=== PATIENT | male | born 1960 | race Caucasian/White ===

== ENCOUNTER 2016-12-11 09:09 | Observation (INO) | payer OTHER ==
[~2016-12-11] VITALS: Ht 172.7 cm; Wt 79.1 kg
[~2016-12-11 09:09] MED LIST: CIAL20TA PO; OMEP20TA PO
[2016-12-11] MEDS ORDERED: SODIUM CHLOR 0.9% 1000 ML INJ 1,000 ML IV ONE (09:17)
[2016-12-11 09:19] LABS: MEAN CORPUSCULAR HGB CONC 36.2 % (32.0-36.0)
[2016-12-11 09:20] VITALS: BP 129/86; PULSE 82; RESP 16; TEMP 98; O2SAT 97
[2016-12-11 09:24] LABS: I-STAT POTASSIUM 3.9 MMOL/L (3.5-4.9)
[2016-12-11] MEDS ORDERED: PRIL20CA9 PO (09:26)
[2016-12-11 09:27] LABS: AUTOMATED NEUTROPHIL # 5.5 TH/MM3 (1.8-7.7); BASOPHIL # 0.1 TH/MM3 (0-0.2); BASOPHIL % 1.1 % (0.0-2.0); EOSINOPHIL # 0.3 TH/MM3 (0-0.4); EOSINOPHIL % 2.9 % (0.0-4.0); HEMATOCRIT 38.8 % (39.0-51.0); LYMPH % 20.6 % (9.0-44.0); LYMPHOCYTE # 1.8 TH/MM3 (1.0-4.8); MEAN CELL VOLUME 88.9 FL (80.0-100.0); MEAN CORPUSCULAR HEMOGLOBIN 32.2 PG (27.0-34.0); MONO % 13.7 % (0.0-8.0); NEUT % 61.7 % (16.0-70.0); PLATELET COUNT 270 TH/MM3 (150-450); RED BLOOD COUNT 4.36 MIL/MM3 (4.50-5.90); RED CELL DISTRIBUTION WIDTH 12.6 % (11.6-17.2); WHITE BLOOD COUNT 8.9 TH/MM3 (4.0-11.0)
[2016-12-11 09:32] LABS: HEMO FLAGS AUTO DIFF
--- NOTE | 2016-12-11 09:33 | RADRPT ---
EXAM DATE/TIME: 12/11/2016 09:20 [facility] COMPARISON: No previous studies available for comparison. INDICATIONS : Stroke alert. Left sided flaccid arm and leg. RADIATION DOSE: 42.62 CTDIvol (mGy) This report was called by Dr. Meade to at 9: 30 AM MEDICAL HISTORY : None SURGICAL HISTORY : None. ENCOUNTER: Initial ACUITY: 1 day PAIN SCALE: 0/10 LOCATION: cranial TECHNIQUE: Multiple contiguous axial images were obtained of the head. Using automated exposure control and adj ustment of the mA and/or kV according to patient size, radiation dose was kept as low as reasonably a chievable to obtain optimal diagnostic quality images. FINDINGS: CEREBRUM: The ventricles are normal for age. No evidence of midline shift, mass lesion, hemorrhage or acute in farction. No extra-axial fluid collections are seen. POSTERIOR FOSSA: The cerebellum and brainstem are intact. The 4th ventricle is midline. The cerebellopontine angle i s unremarkable. EXTRACRANIAL: The visualized portion of the orbits is intact. SKULL: The calvaria is intact. No evidence of skull fracture. CONCLUSION: Normal examination for a patient of this age. Chava Meade MD on December 11, 2016 at 9:30 Board Certified Radiologist. This report was verified electronically.
[2016-12-11 09:34] LABS: APTT (PATIENT) 21.5 SEC (24.3-30.1); INTERNATIONAL NORMALIZED RATIO 0.9 RATIO; PROTHROMBIN TIME - PATIENT 9.8 SEC (9.8-11.6)
--- NOTE | 2016-12-11 09:41 | PD ---
HPI Chief Complaint: Stroke Alert Time Seen by Provider: 09:17 Travel History International Travel<30 days: No Contact w/Intl Traveler<30days: No Traveled to known affect area: No History of Present Illness HPI This patient is brought in as a stroke alert was called by paramedics in the field. This patient was seated at his desk at 8:45 AM when he reportedly developed weakness of left arm and leg and numbness of left arm and leg. No speech problems or mental confusion. He denies headache or head injury. Takes no blood thinners. He actually reports no health problems or medications. One auto technician reported that he was flaccid on the left side but the other one says that he saw him moving the left arm and when he noticed her watching he abruptly at fall to the ground and started using the right arm instead. She said he was hyperventilating and anxious on scene. Regardless, when I evaluate him at about 10 minutes after 9 his symptoms have essentially resolved. His sensation is reportedly back to normal and he is moving his arm and leg. Symptoms were of moderate severity but resolved on their own. No alleviating factors. Duration 25 minutes PFSH Past Medical History Medical History: Denies Significant Hx Past Surgical History Surgical History: No Previous Surgery Social History Alcohol Use: Yes ("COUPLE BEERS DAILY") Tobacco Use: No Substance Use: No (DENIES) Allergies-Medications (Allergen,Severity, Reaction): Coded Allergies: Codeine (Unverified Allergy, Intermediate, vomitting , 12/11/16) Liquid Codeine Reported Meds & Prescriptions Reported Meds & Active Scripts Active Reported Prilosec (Omeprazole) 20 Mg Cap 20 Mg PO DAILY Review of Systems General / Constitutional: No: Fever Eyes: No: Visual changes HENT: No: Headaches Cardiovascular: No: Chest Pain or Discomfort Respiratory: No: Shortness of Breath Gastrointestinal: No: Abdominal Pain Genitourinary: No: Dysuria Musculoskeletal: No: Pain Skin: No Rash Neurologic: Positive: Weakness, Sensory Disturbance Psychiatric: Positive: Anxiety, No: Depression Endocrine: No: Polydipsia Hematologic/Lymphatic: No: Easy Bruising Physical Exam Narrative GENERAL: Well-nourished, well-developed patient in no apparent distress. SKIN: Warm and dry. HEAD: Atraumatic. Normocephalic. EYES: Pupils equal and round. No scleral icterus. No injection or drainage. ENT: No nasal bleeding or discharge. Mucous membranes pink and moist. NECK: Trachea midline. No JVD. CARDIOVASCULAR: Regular rate and rhythm. No murmur appreciated. RESPIRATORY: No accessory muscle use. Clear to auscultation. Breath sounds equal bilaterally. GASTROINTESTINAL: Abdomen soft, non-tender, nondistended. Hepatic and splenic margins not palpable. MUSCULOSKELETAL: No obvious deformities. No clubbing. No cyanosis. No edema. NEUROLOGICAL: Awake and alert. No obvious cranial nerve deficits. Motor grossly within normal limits. Normal speech. PSYCHIATRIC: Anxious mood and affect; insight and judgment normal. Data Data Last Documented VS Vital Signs Date Time Temp Pulse Resp B/P Pulse Ox O2 Delivery O2 Flow Rate FiO2 12/11/16 09:29 97 Room Air 12/11/16 09:27 75 18 12/11/16 09:20 98.0 129/86 Orders Diet Npo (12/11/16 Breakfast) Activity Bed Rest (12/11/16 ) Electrocardiogram (12/11/16 ) I-Stat Creatinine (12/11/16 09:17) I-Stat Profile (12/11/16 09:17) Prothrombin Time / Inr (Pt) (12/11/16 09:17) Act Partial Throm Time (Ptt) (12/11/16 09:17) Complete Blood Count With Diff (12/11/16 09:17) Fibrinogen (12/11/16 09:17) Drug Screen, Random Urine (12/11/16 09:17) Type And Screen (12/11/16 09:17) Ct Brain W/O Iv Contrast(Rout) (12/11/16 ) Consult Neurology (12/11/16 ) Blood Glucose (12/11/16 09:17) Ecg Monitoring (12/11/16 09:17) Neuro Checks Q2HX12,Q4H (12/11/16 09:17) Nursing Bedside Swallow Assess .ONCE (12/11/16 09:17) Iv Access Insert/Monitor (12/11/16 09:17) NPO (12/11/16 09:17) Oximetry (12/11/16 09:17) Oxygen Administration (12/11/16 09:17) Sodium Chlor 0.9% 1000 Ml Inj (Ns 1000 M (12/11/16 09:17) Resp Oxygen Magdi C Titrat 1-4 L (12/11/16 09:17) (Hub Use Only)Inp Phy Cons/Ref (12/11/16 ) Labs Laboratory Tests Test 12/11/16 09:10 White Blood Count 8.9 TH/MM3 Red Blood Count 4.36 MIL/MM3 Hemoglobin 14.0 GM/DL Bedside Hemoglobin 13.3 G/DL Hematocrit 38.8 % Bedside Hematocrit 39.0 % Mean Corpuscular Volume 88.9 FL Mean Corpuscular Hemoglobin 32.2 PG Mean Corpuscular Hemoglobin 36.2 % Concent Red Cell Distribution Width 12.6 % Platelet Count 270 TH/MM3 Mean Platelet Volume 9.3 FL Neutrophils (%) (Auto) 61.7 % Lymphocytes (%) (Auto) 20.6 % Monocytes (%) (Auto) 13.7 % Eosinophils (%) (Auto) 2.9 % Basophils (%) (Auto) 1.1 % Neutrophils # (Auto) 5.5 TH/MM3 Lymphocytes # (Auto) 1.8 TH/MM3 Monocytes # (Auto) 1.2 TH/MM3 Eosinophils # (Auto) 0.3 TH/MM3 Basophils # (Auto) 0.1 TH/MM3 CBC Comment AUTO DIFF Prothrombin Time 9.8 SEC Prothromb Time International 0.9 RATIO Ratio Activated Partial 21.5 SEC Thromboplast Time Fibrinogen 253 mg/dL Bedside Sodium 139 MMOL/L Bedside Potassium 3.9 MMOL/L Bedside Chloride 103 MMOL/L Bedside Blood Urea Nitrogen 16 MG/DL Bedside Creatinine 1.0 MG/DL Bedside Glucose 116 MG/DL Blood Type O POSITIVE Blood Bank Comment MDM Medical Decision Making Medical Screen Exam Complete: Yes Emergency Medical Condition: Yes Medical Record Reviewed: Yes Differential Diagnosis CVA, TIA, panic attack Narrative Course I have reviewed the patient's electronic medical record. I initiated stroke alert protocol I reviewed the case in detail with neurologist protection officer Dr. Rodriguez Brain CT I discussed with radiologist is normal He does not meet TPA criteria based on rapidly resolving deficits. Within 25 minutes he was basically resolved. There is question as to whether there is some psychiatric issues contributing. He seemed quite anxious and was wearing women's shoes and underwear. Regardless patient will require admission for neurologic evaluation. Dr. Rodriguez recommends this and will be a technical marketing consultant. At his recommendation on giving him an aspirin and admitting him to the hospitalist who I'm calling now Diagnosis Primary Impression: Acute focal neurological deficit, onset within 3 hours Admitting Information Admitting Physician Requests: Admit Bernard Jefferson MD Dec 11, 2016 09:41
[2016-12-11] MEDS ORDERED: ASPIRIN 325 MG TAB PO ONE (09:45)
[2016-12-11 09:57] LABS: SCAN/DIFF AUTO DIFF CONFIRMED
--- NOTE | 2016-12-11 10:44 | HHI.HP ---
[facility] Service [facility] Primary Care Physician Unknown Admission Diagnosis acute neurologic deficit/ stroke alert Diagnoses: (1) TIA (transient ischemic attack) (2) Acute focal neurological deficit, onset within 3 hours (3) GERD (gastroesophageal reflux disease) Chief Complaint: weakness and numbness of left arm/leg Travel History International Travel<30 Days: No Contact w/Intl Traveler <30 Da: No Traveled to Known Affected Are: No History of Present Illness Patient is a 56-year-old male who states that he was sitting at his desk this morning developed lightheadedness, dizziness, and left sided numbness and weakness. He called 911 and states that he had to crawl down the stairs to unlock the door to let them in. He denies headache, chest pain, dyspnea. Left upper and lower extremity numbness and weakness have resolved. They lasted less than 30 minutes total. Currently asymptomatic and asking if he can go home. Review of Systems Constitutional: DENIES: Fever, Chills, Night Sweats Eyes: DENIES: Blurred vision, Vision loss Ears, nose, mouth, throat: DENIES: Hearing loss Respiratory: DENIES: Cough, Wheezing, Sputum production, Shortness of breath Cardiovascular: DENIES: Chest pain, Palpitations, Dyspnea on Exertion, Lower Extremity Edema Gastrointestinal: DENIES: Abdominal pain, Constipation, Diarrhea, Nausea, Vomiting Genitourinary: DENIES: Urinary frequency, Urinary incontinence, Urgency, Hematuria, Dysuria, Nocturia Musculoskeletal: DENIES: Joint pain, Muscle aches Integumentary: DENIES: Pruritus, Rash Hematologic/lymphatic: DENIES: Bruising Neurologic: COMPLAINS OF: Localized weakness, DENIES: Headache Past Family Social History Past Medical History GERD Past Surgical History None Reported Medications Prilosec 20 mg daily Allergies: Coded Allergies: Codeine (Unverified Allergy, Intermediate, vomitting , 12/11/16) Liquid Codeine Family History Father of MD. Social History Drinks 3-4 beers daily. Reports remote history of illicit drug use. No IV drug abuse. Denies tobacco use. Physical Exam Vital Signs Vital Signs Date Time Temp Pulse Resp B/P Pulse Ox O2 Delivery O2 Flow Rate FiO2 12/11/16 09:29 97 Room Air 12/11/16 09:27 75 18 97 Room Air 12/11/16 09:20 98.0 82 16 129/86 97 Physical Exam GENERAL: Well-nourished, well-developed malein no acute distress. HEENT: Normocephalic, atraumatic. Pupils equal, round and reactive. Extraocular movements intact. No scleral icterus. No injection or drainage. Oropharynx is clear. Mucous membranes are moist. CARDIOVASCULAR: Regular rate and rhythm without murmurs, gallops, or rubs. RESPIRATORY: Clear to auscultation. No wheezes, rales, or rhonchi. Breathing is non-labored. GASTROINTESTINAL: Abdomen soft, non-tender, nondistended. EXTREMITIES: No lower extremity edema. No calf tenderness. PSYCH: Alert and oriented x 3. NEURO: Cranial nerves II through XII are grossly intact. Geology Technician strength 5/5 bilaterally. Lower extremity strength 5/5 bilaterally. Laboratory Laboratory Tests Test 12/11/16 09:10 White Blood Count 8.9 Red Blood Count 4.36 Hemoglobin 14.0 Bedside Hemoglobin 13.3 Hematocrit 38.8 Bedside Hematocrit 39.0 Mean Corpuscular Volume 88.9 Mean Corpuscular Hemoglobin 32.2 Mean Corpuscular Hemoglobin 36.2 Concent Red Cell Distribution Width 12.6 Platelet Count 270 Mean Platelet Volume 9.3 Neutrophils (%) (Auto) 61.7 Lymphocytes (%) (Auto) 20.6 Monocytes (%) (Auto) 13.7 Eosinophils (%) (Auto) 2.9 Basophils (%) (Auto) 1.1 Neutrophils # (Auto) 5.5 Lymphocytes # (Auto) 1.8 Monocytes # (Auto) 1.2 Eosinophils # (Auto) 0.3 Basophils # (Auto) 0.1 CBC Comment AUTO DIFF Differential Comment AUTO DIFF CONFIRMED Prothrombin Time 9.8 Prothromb Time International 0.9 Ratio Activated Partial 21.5 Thromboplast Time Fibrinogen 253 Bedside Sodium 139 Bedside Potassium 3.9 Bedside Chloride 103 Bedside Blood Urea Nitrogen 16 Bedside Creatinine 1.0 Bedside Glucose 116 Blood Type O POSITIVE Antibody Screen NEGATIVE Blood Bank Comment Result Diagram: 12/11/16 0910 Imaging Last Impressions Head CT 12/11/16 0000 Signed Impressions: Service Date/Time: Sunday, December 11, 2016 09:20 - CONCLUSION: Normal examination for a patient of this age. Chava Meade MD Assessment and Plan Assessment and Plan 1. Acute neurologic deficit: Likely TIA. Symptoms have resolved. ER physician spoke with neurology who requests further workup for TIA/CVA. Check MRI brain, carotid artery ultrasound, echocardiogram. Continue aspirin. 2. GERD: Continue PPI. 3. DVT prophylaxis: JOSE A Cabrales. Bernard Potter MD Dec 11, 2016 10:44
[2016-12-11] MEDS ORDERED: SODIUM CHLORIDE 0.9% FLUSH 5 ML FLUSH IVF PRN (11:15)
[2016-12-11] MEDS ORDERED: GLUCAGON 1 MG/ML VIAL IM/SQ PRN (11:15)
[2016-12-11] MEDS ORDERED: DEXTROSE 50% IN WATER 50 ML VIAL(D50) IV PUSH PRN (11:15)
[2016-12-11 11:58] LABS: HEMOGLOBIN A1a 0.7 %; HEMOGLOBIN A1b 1.5 %; HEMOGLOBIN Ao 86.6 %; HEMOGLOBIN LA1C 2.2 %; HEMOGLOBIN P3 3.7 %
[2016-12-11 13:10] VITALS: BP 143/79
--- NOTE | 2016-12-11 13:16 | RADRPT ---
EXAM DATE/TIME: 12/11/2016 12:43 [facility] COMPARISON: No previous studies available for comparison. INDICATIONS : Left sided weakness. MEDICAL HISTORY : None. SURGICAL HISTORY : Inguinal hernia repair. ENCOUNTER: Initial ACUITY: 1 day PAIN SCORE: 0/10 LOCATION: cranial Please note a normal MRA of the brain does not entirely exclude the possibility of a small aneurysm, nor the possibility of distal intracranial vessel disease. TECHNIQUE: 3D time of flight MRA was performed. Source images, multiplanar STS MIP, and 3D volume MIP reconstru ctions were reviewed. FINDINGS: There is excellent visualization of the major intracranial arteries out to the second-order branch ve ssels. There is no evidence for aneurysm, vessel truncation or stenosis, and no evidence for vascula r malformation. There is a patent posterior communicating artery. CONCLUSION: Normal examination for a patient of this age. Chava Meade MD on December 11, 2016 at 13:14 Board Certified Radiologist. This report was verified electronically.
[2016-12-11 13:22] VITALS: BP 136/79; PULSE 65; RESP 20; TEMP 99.4; O2SAT 96
--- NOTE | 2016-12-11 13:48 | RADRPT ---
EXAM DATE/TIME: 12/11/2016 12:43 [facility] COMPARISON: CT BRAIN W/O CONTRAST, December 11, 2016, 9:20. INDICATIONS : Left sided weakness. MEDICAL HISTORY : None. SURGICAL HISTORY : Inguinal hernia repair. ENCOUNTER: Initial ACUITY: 1 day PAIN SCORE: 0/10 LOCATION: cranial TECHNIQUE: Multiplanar, multisequence MRI of the brain was performed without contrast. FINDINGS: CEREBRUM: The ventricles are normal for age. No evidence of midline shift, mass lesion, hemorrhage or acute in farction. No extraaxial fluid collections are seen. The pituitary gland and suprasellar cistern are normal in configuration. WHITE MATTER: No significant signal abnormalities are seen in the white matter. POSTERIOR FOSSA: The cerebellum and brainstem are intact. The 4th ventricle is midline. The cerebellopontine angle is unremarkable. The cerebellar tonsils are normal in position. DIFFUSION IMAGING: No focal areas of restricted diffusion are seen. No evidence of acute infarction. EXTRACRANIAL: The visualized portions of the orbits and paranasal sinuses are unremarkable. CONCLUSION: Normal examination for a patient of this age. Chava Meade MD on December 11, 2016 at 13:44 Board Certified Radiologist. This report was verified electronically.
[2016-12-11] MEDS: INSULIN ASPART SUPPLEMENTAL SCALE SQ SCH ×2 (16:00→21:00)
[2016-12-11 16:32] LABS: HDL CHOLESTEROL 59.9 MG/DL (40.0-60.0)
--- NOTE | 2016-12-11 16:38 | MB ---
cc: DESTINEE CASAS M.D. DATE OF CONSULTATION: 12/11/2016. REASON FOR CONSULTATION: Neurological evaluation. HISTORY OF PRESENT ILLNESS: He is 56 who came in this morning as a stroke alert. I spoke to Dr. Jefferson and the patient's neurological deficits resolved quickly and by the time he was seen in the emergency room, he had no residual symptoms. Therefore, he was not a tPA candidate. The patient had some dizziness this morning when he was doing some paperwork in the office. He thought about going home because of diseases. He got up and started walking and he felt he was walking like a drunk. He fell with the left sided weakness and had to crawl. By the time he was in the ambulance, he felt his left-sided weakness, which was severe, starting to improve. No residual deficits. There were no visual symptoms. He had an MRI brain, CT brain and MRA head which were negative. MEDICATIONS: He does not take any medications whatsoever. PAST MEDICAL HISTORY: He describes being healthy. LABORATORY DATA: The basic chemistry was normal. Creatinine 1.0. BUN 16. Glucose 116. INR 0.9. CBC also unremarkable. ASSESSMENT: TIA causing left hemiparesis, some associated dizziness. He came in as a stroke alert, symptoms improved quickly therefore not a tPA candidate. He has been started on aspirin. I am going to check a lipid profile if not done yet. His EKG is sinus rhythm. We ordered an MRA neck. If all of this is negative, then he can be discharged on aspirin. I am also ordering a hypercoagulable profile. Follow up in a couple of weeks. I would recommend extended heart monitor as outpatient. I have discussed all of these with the patient and he understands these well. We will follow in the office. MD SOPHY Jacome/LORETTA /4:00 PM /2:14 PM
[2016-12-11 16:44] VITALS: BP 141/87; PULSE 80; RESP 20; TEMP 98.3; O2SAT 98
[2016-12-11] MEDS ORDERED: GADODIAMIDE PF 287 MG/ML 20 ML VIAL (for RAD MRI) IV ONE (17:11)
--- NOTE | 2016-12-11 17:39 | RADRPT ---
EXAM DATE/TIME: 12/11/2016 17:07 [facility] COMPARISON: MRA BRAIN W/O CONTRAST, December 11, 2016, 12:43. INDICATIONS : Left sided weakness. CONTRAST: 20 cc Omniscan (gadodiamide) IV MEDICAL HISTORY : None. SURGICAL HISTORY : Inguinal hernia repair. ENCOUNTER: Initial ACUITY: 1 day PAIN SCORE: 0/10 LOCATION: cranial Percent stenosis is calculated using the diameter of the stenotic region over the diameter of the nor mal distal internal carotid artery. TECHNIQUE: Bolus infused MRA of the extracranial circulation was performed using a neurovascular coil. Post pro cessing was performed including rotationg subvolume maximum intensity projections of each carotid art david, rotating full volume maximum intensity projections of both carotid arteries, sagittal and paredes l sliding thin slab reformations of each carotid artery, and left oblique sliding thin slab reformati on through the aortic arch to include the origin of the arch branch vessels. FINDINGS: AORTIC ARCH: There is a three vessel origin of the great vessels from the aorta. No evidence of ostial narrowing. RIGHT CAROTID: The common carotid artery is intact. The carotid bulb has a normal configuration without ulceration or narrowing. There is a minimal narrowing of the orifice of the internal carotid artery with less t jacques 30% stenosis. The internal carotid artery lumen is smooth.. The external carotid artery is inta ct. LEFT CAROTID: The common carotid artery is intact. The carotid bulb has a normal configuration without ulceration or narrowing. The internal carotid artery lumen is smooth without stenosis. The external carotid ar ambrocio is intact. VERTEBRALS: The vertebral arteries have a symmetric diameter. No stenotic lesions are seen. CONCLUSION: Minimal (less than 30%) narrowing of the origin of the right internal carotid artery. Otherwise nega tive exam. Michael Nugent MD on December 11, 2016 at 17:35 Board Certified Radiologist. This report was verified electronically.
[2016-12-11 18:00] VITALS: PULSE 69
--- NOTE | 2016-12-11 18:05 | EKG ---
Date Performed: 12/11/2016 Time Performed: 09:34:53 PTAGE: 56 years EKG: Sinus rhythm NORMAL ECG NO PREVIOUS TRACING DOCTOR: Donavan Merritt Interpretating Date/Time 12/11/2016 18:03:29
[2016-12-11 20:00] VITALS: BP 112/71; PULSE 71; RESP 18; TEMP 97.5; O2SAT 96
[2016-12-11] MEDS: SODIUM CHLORIDE 0.9% FLUSH 5 ML FLUSH IVF SCH (21:00)
[2016-12-12] VITALS: BP 141/75; PULSE 67; RESP 18; TEMP 97.3; O2SAT 97
[2016-12-12 04:00] VITALS: BP 132/87; PULSE 65; RESP 18; TEMP 97.4; O2SAT 98
[2016-12-12] MEDS: INSULIN ASPART SUPPLEMENTAL SCALE SQ SCH (06:05)
[2016-12-12 08:31] VITALS: BP 129/75; PULSE 72; RESP 18; TEMP 97.2; O2SAT 97
[2016-12-12] MEDS ORDERED: ASPIRIN 325 MG TAB PO SCH (09:00)
[2016-12-12] MEDS: SODIUM CHLORIDE 0.9% FLUSH 5 ML FLUSH IVF SCH (09:17)
[2016-12-12] MEDS ORDERED: ASPI325T PO (09:22)
--- NOTE | 2016-12-12 09:23 | HHI.DCPOC ---
Discharge Care Plan Diagnosis: (1) TIA (transient ischemic attack) (2) GERD (gastroesophageal reflux disease) Goals to Promote Your Health * To prevent worsening of your condition and complications * To maintain your health at the optimal level Directions to Meet Your Goals Take your medications as prescribed Follow your dietary instruction Follow activity as directed Keep your appointments as scheduled Take your immunizations and boosters as scheduled If your symptoms worsen call your PCP, if no PCP go to Urgent Care Center or Emergency Room Smoking is Dangerous to Your Health. Avoid second hand smoke Call the 24-hour hour crisis hotline for domestic abuse at Bernard Potter MD Dec 12, 2016 09:23
--- NOTE | 2016-12-12 09:27 | HHI.PR ---
Subjective Remarks Follow up TIA. The patient has no complaints at this time. Denies headache, vision changes, chest pain, dyspnea. No numbness/tingling/weakness of his extremities. He wants to go home. Objective Vitals Vital Signs Date Time Temp Pulse Resp B/P Pulse Ox O2 Delivery O2 Flow Rate FiO2 12/12/16 08:31 97.2 72 18 129/75 97 12/12/16 04:00 97.4 65 18 132/87 98 12/12/16 00:00 97.3 67 18 141/75 97 12/11/16 20:00 97.5 71 18 112/71 96 12/11/16 18:00 69 12/11/16 16:44 98.3 80 20 141/87 98 12/11/16 13:22 99.4 65 20 136/79 96 12/11/16 13:10 85 18 143/79 97 12/11/16 09:29 97 Room Air 12/11/16 09:27 75 18 97 Room Air I/O 12/11/16 12/11/16 12/11/16 12/12/16 12/12/16 12/12/16 07:00 15:00 23:00 07:00 15:00 23:00 Intake Total 480 ml Balance 480 ml Intake Oral 480 ml # Voids 1 4 Result Diagram: 12/11/16 0910 Imaging Last Impressions Neck Magnetic Resonance Angiography 12/11/16 0000 Signed Impressions: Service Date/Time: Sunday, December 11, 2016 17:07 - CONCLUSION: Minimal ( less than 30%%) narrowing of the origin of the right internal carotid artery. Otherwise negative exam. Michael Nugent MD Head Magnetic Resonance Angiography 12/11/16 0000 Signed Impressions: Service Date/Time: Sunday, December 11, 2016 12:43 - CONCLUSION: Normal examination for a patient of this age. Chava Meade MD Head CT 12/11/16 0000 Signed Impressions: Service Date/Time: Sunday, December 11, 2016 09:20 - CONCLUSION: Normal examination for a patient of this age. Chava Meade MD Brain MRI 12/11/16 0000 Signed Impressions: Service Date/Time: Sunday, December 11, 2016 12:43 - CONCLUSION: Normal examination for a patient of this age. Chava Meade MD Objective Remarks General: No acute distress. Heart: Regular rate and rhythm. No murmur. Lungs: Clear to auscultation bilaterally. No wheezes, rales, or rhonchi. Breathing is nonlabored. Abdomen: Soft, nontender, nondistended. Extremities: No lower extremity edema. Psych: Alert and oriented. Procedures None Urinary Catheter: No Vascular Central Line Catheter: No A/P Problem List: (1) TIA (transient ischemic attack) ICD Code: G45.9 Status: Resolved (2) Acute focal neurological deficit, onset within 3 hours ICD Code: R29.818 Status: Resolved (3) GERD (gastroesophageal reflux disease) ICD Code: K21.9 Status: Chronic Assessment and Plan 1. Acute neurologic deficit: Likely TIA. Symptoms have resolved. MRI/MRA negative. Continue aspirin. Patient cleared by neurology for discharge. 2. GERD: Continue PPI. 3. DVT prophylaxis: SCDs, JOSE A lucas. Discharge Planning Discharge home in stable condition. Follow-up with PCP, neurology. Patient was advised to discuss referral to cardiology with his PCP. Heart healthy diet. Activity as tolerated. Bernard Potter MD Dec 12, 2016 09:27
--- NOTE | 2016-12-12 14:40 | EC ---
Study Study Date:12/12/2016 STUDY CONCLUSIONS SUMMARY - Left ventricle: The cavity size was normal. Wall thickness was normal. Systolic function was normal. The estimated ejection fraction was in the range of 55% to 60%. Wall motion was normal; there were no regional wall motion abnormalities. - Tricuspid valve: Mild regurgitation. If LV function is below 40, please consider prescribing an ACEI or ARB or document rationale for non-use. PROCEDURE DATA STUDY STATUS: Elective. Procedure: Transthoracic echocardiography. Image quality was good. Scanning was performed from the parasternal, apical, and subcostal acoustic windows. Study completion: The patient tolerated the procedure well. Transthoracic echocardiography. M-mode, complete 2D, complete spectral Doppler, and color Doppler. Patient status: Inpatient. CARDIAC ANATOMY LEFT VENTRICLE: The cavity size was normal. Wall thickness was normal. Systolic function was normal. The estimated ejection fraction was in the range of 55% to 60%. Wall motion was normal; there were no regional wall motion abnormalities. AORTIC VALVE: Trileaflet; normal thickness leaflets. Doppler: Transvalvular velocity was within the normal range. There was no stenosis. No regurgitation. AORTA: Aortic root: The aortic root was normal in size. MITRAL VALVE: Structurally normal valve. Doppler: Transvalvular velocity was within the normal range. There was no evidence for stenosis. Trace to mild regurgitation. Peak gradient: 2mm Hg (D). LEFT ATRIUM: The atrium was normal in size. RIGHT VENTRICLE: The cavity size was normal. Wall thickness was normal. PULMONIC VALVE: Doppler: Transvalvular velocity was within the normal range. There was no evidence for stenosis. No regurgitation. TRICUSPID VALVE: Structurally normal valve. Doppler: Transvalvular velocity was within the normal range. Mild regurgitation. PULMONARY ARTERY: The main pulmonary artery was normal-sized. Systolic pressure was within the normal range. RIGHT ATRIUM: The atrium was normal in size. PERICARDIUM: There was no pericardial effusion. SYSTEMIC VEINS: Inferior vena cava: The vessel was normal in size. BASIC MEASUREMENTS ADULT NORMAL Left ventricle LV internal dimension, ED, chordal level, 50.6 mm 43-52 PLAX LV posterior wall thickness, ED 7.42 mm IVS/LVPW ratio, ED 1.11 <1.3 Ventricular septum Septal thickness, ED 8.24 mm Aortic valve Leaflet separation 17 mm 15-26 Left atrium Anterior-posterior dimension 31 mm Right ventricle RV internal dimension, ED, PLAX 21 mm 19-38 BASIC MEASUREMENTS ADULT NORMAL Aortic valve Leaflet separation 17 mm 15-26 Aorta Root diameter, ED *38 mm 20-37 DOPPLER MEASUREMENTS ADULT NORMAL Main pulmonary artery Pressure, S 30 mm Hg =30 Mitral valve Peak E-wave velocity 75.5 cm/s Peak A-wave velocity 102 cm/s Peak gradient, D 2 mm Hg Peak E/A ratio 0.7 Tricuspid valve Regurgitant peak velocity 250 cm/s Peak RV-RA gradient, S 25 mm Hg Maximal regurgitant velocity 250 cm/s Systemic veins Estimated CVP 5 mm Hg Right ventricle RV pressure, S *30 mm Hg <30 LEGEND: Mean values are shown as u=mean value. Asterisk (*) roche values outside specified normal range. Prepared and signed by Kalia Mcrae [id number]
[2016-12-15 03:54] LABS: THROMBIN TIME FOR LA ND sec (13-19)
[2016-12-15 19:58] LABS: PHOSPHATIDYLSERINE AB IGA LESS THAN 20.0 U/mL (()); PHOSPHATIDYLSERINE AB IGM LESS THAN 25.0 U/mL (())
== END 2016-12-12 11:11 | disposition home or self-care (01) ==
LOC: NEPE 09:09 → NEDA 10:02 → INTOOBSV 10:02 → N05A 13:09
PROVIDERS: ADMIT Family Medicine; ATTEND Family Medicine
DX: G45.9 Transient cerebral ischemic attack, unspecified (principal); G81.94 Hemiplegia, unspecified affecting left nondominant side; R29.818 Other symptoms and signs involving the nervous system; R42 Dizziness and giddiness; R53.1 Weakness; K21.9 Gastro-esophageal reflux disease without esophagitis; R73.09 Other abnormal glucose
CPT/HCPCS: 70450; 70544; 70548; 70551; 80061; 81240; 81241; 81291; 82435; 82565; 82947; 82948; 83036; 83090; 84132; 84295; 84520; 85025; 85240; 85300; 85303; 85306; 85307; 85384; 85610; 85613; 85730; 86146; 86147; 86148; 86850; 86900; 86901; 93005; 93306; 97162; 97165; 99285; A9579; G0378; G8987; G8988; J7030